=== PATIENT | male | born 1995 | race Caucasian/White ===

== ENCOUNTER → 2016-10-23 | Outpatient (CLI) | payer OTHER ==
--- NOTE | 2016-10-23 12:59 | REP ---
Clinical: Pain. Technique: AP, lateral, bilateral oblique views left fourth digit . Findings: The osseous structures and joint spaces are intact and normal. There is no evidence for acute fracture or dislocation. Surrounding soft tissues are unremarkable. No subcutaneous emphysema or radiodense foreign body. Impression: Normal examination . No acute fracture or dislocation. Signed by Kwasi Mcintosh MD 10/23/2016 12:51 P
== END ==
LOC: M WUC 12:08
PROVIDERS: ATTEND Physician Assistant
DX: M79.645 Pain in left finger(s) (principal)

== ENCOUNTER 2018-03-22 13:08 | Emergency (ER) | payer OTHER, BC ==
[~2018-03-22] VITALS: Ht 180.3 cm; Wt 140.9 kg
[2018-03-22] MEDS ORDERED: IBUP-1022 PO (14:11)
[2018-03-22 14:15] VITALS: BP 136/83
--- NOTE | 2018-03-22 14:31 | REP ---
RIGHT WRIST COMPLETE: 03/22/2018. Clinical history: Trauma, patient fell. Wrist pain. Findings: Four views are provided. Some minor swelling about the distal forearm and dorsal aspect of the wrist. Distal radius and ulna are without fracture or avulsion. Carpal bones and their joint spaces are grossly intact. Proximal metacarpals and visible MCPs are intact. There is no evidence of an acute fracture in the metacarpals visible. Impression: 1. Some soft tissue swelling distal forearm and wrist but no visible or displaced acute fracture, subluxation or abnormal soft-tissue calcification/avulsion. Electronically Signed by Wally Pollock MD 03/22/2018 05:50 P
== END 2018-03-22 14:20 | disposition home or self-care (01) ==
LOC: M ED 13:08
DX: S63.501A Unspecified sprain of right wrist, initial encounter (principal); W19.XXXA Unspecified fall, initial encounter; Y92.89 Other specified places as the place of occurrence of the external cause; Y93.9 Activity, unspecified; Y99.0 Civilian activity done for income or pay; Z72.0 Tobacco use